=== PATIENT | female | born 1985 | race Caucasian/White ===

== ENCOUNTER 2018-01-17 07:12 | Emergency (ER) | payer OTHER ==
[2018-01-17] MEDS ORDERED: METOPROLOL TAR 50 MG TAB ONE (08:01)
[2018-01-17] MEDS ORDERED: KETOROLAC 30 MG/ML INJ ONE (08:01)
[2018-01-17] MEDS ORDERED: HYDROCODONE/APAP 10/325 TAB ONE (08:53)
--- NOTE | 2018-01-17 09:44 | ER ---
Nurse's Notes [facility] Name: Joslyn Cadena Age: 32 yrs Sex: Female : 1985 Arrival Date: 01/17/2018 Time: 07:15 Bed 20 Private MD: None, None Diagnosis: Insect bite (nonvenomous), right lower leg Presentation: 01/17 07:20 Presenting complaint: Patient states: "I got bitten by a spider this morning". Pt aa5 reports spider bite to right calf. 07:20 Transition of care: patient was not received from another setting of care. Onset of aa5 symptoms was January 17, 2018. Risk Assessment: Do you want to hurt yourself or someone else? Patient reports no desire to harm self or others. Initial Sepsis Screen: Does the patient meet any 2 criteria? No. Patient's initial sepsis screen is negative. Does the patient have a suspected source of infection? No. Patient's initial sepsis screen is negative. Care prior to arrival: None. 07:20 Method Of Arrival: Ambulatory aa5 07:20 Acuity: MIKE 5 aa5 Triage Assessment: 08:07 Bite description: animal information: vaccination(s). hb Historical: - Allergies: 07:22 Naproxen; aa5 07:22 dextromethorphan; aa5 - PMHx: 07:22 Hypertension; Fatty Liver; aa5 - PSHx: 07:22 ; aa5 - Immunization history:: Adult Immunizations unknown. - Social history:: Smoking status: Patient uses tobacco products, smokes one-half pack cigarettes per day. - Ebola Screening: : No symptoms or risks identified at this time. Screenin:05 Abuse screen: Denies threats or abuse. Denies injuries from another. Nutritional hb screening: No deficits noted. Tuberculosis screening: No symptoms or risk factors identified. Fall Risk None identified. Assessment: 08:05 General: Appears in no apparent distress. Behavior is calm, cooperative. Pain: Pain hb currently is 9 out of 10 on a pain scale. Neuro: Level of Consciousness is awake, alert, obeys commands, Oriented to person, place, time, situation. Cardiovascular: Capillary refill < 3 seconds Patient's skin is warm and dry. Respiratory: Airway is patent Trachea midline Respiratory effort is even, unlabored, Respiratory pattern is regular, symmetrical. Derm: Skin is intact, is healthy with good turgor, Skin is pink, warm \\T\\ dry. 08:06 Reassessment: Pt report bit to back of right calf, very small insect bite noted, no hb redness or swelling present. 08:55 Reassessment: Patient appears in no apparent distress at this time. Patient and/or hb family updated on plan of care and expected duration. Pain level reassessed. Patient is alert, oriented x 3, equal unlabored respirations, skin warm/dry/pink. Family at bedside. 09:45 Reassessment: Patient appears in no apparent distress at this time. Patient and/or hb family updated on plan of care and expected duration. Pain level reassessed. Patient is alert, oriented x 3, equal unlabored respirations, skin warm/dry/pink. Patient states feeling better. Patient states symptoms have improved. Vital Signs: 07:24 BP 172 / 110; Pulse 89; Resp 20 S; Temp 97.6(O); Pulse Ox 98% on R/A; Pain 9/10; aa5 08:45 BP 180 / 106; Pulse 80; Resp 15; Pulse Ox 100% on R/A; Pain 8/10; hb 09:45 BP 156 / 86; Pulse 78; Resp 16; Pulse Ox 100% on R/A; Pain 3/10; hb ED Course: 07:15 Patient arrived in ED. sb2 07:15 Eloy Johnson MD is Attending Physician. kdr 07:15 None, None is Private Physician. sb2 07:20 Arm band placed on. aa5 07:29 Triage completed. aa5 07:40 Patient has correct armband on for positive identification. Bed in low position. Call hb light in reach. Side rails up X 1. 07:45 Mallorie Merritt, RN is Primary Nurse. hb 10:15 No provider procedures requiring assistance completed. Patient did not have IV access hb during this emergency room visit. Administered Medications: 08:05 Drug: Lopressor (metoprolol TARTRATE) 50 mg Route: PO; hb 09:00 Follow up: Response: No adverse reaction; Blood pressure is lowered hb 08:05 Drug: TORadol 60 mg Route: IM; Site: right gluteus; hb 09:00 Follow up: Response: No adverse reaction; Pain is decreased hb 08:54 Drug: [place] 10 mg-325 mg 1 tabs Route: PO; hb 09:45 Follow up: Response: No adverse reaction; Pain is decreased hb Outcome: 09:43 Discharge ordered by . kdr 10:15 Discharged to home ambulatory. hb 10:15 Condition: stable 10:15 Discharge instructions given to patient, Instructed on discharge instructions, follow up and referral plans. medication usage, wound care, Demonstrated understanding of instructions, follow-up care, medications, wound care, Prescriptions given X 2. 10:16 Patient left the ED. hb Signatures: Eloy Johnson MD MD [facility] Lee Ann Maza, RN RN aa5 Mallorie Merritt RN RN Consuelo Epstein sb2
--- NOTE | 2018-01-17 09:44 | EDPHYS ---
Physician Documentation [facility] Name: Joslyn Cadena Age: 32 yrs Sex: Female : 1985 Arrival Date: 01/17/2018 Time: 07:15 Bed 20 Private MD: None, None ED Physician Eloy Johnson HPI: 01/17 08:02 This 32 yrs old Female presents to ER via Ambulatory with complaints of kdr Insect Bite. 08:02 The patient was bitten on the lateral aspect of right calf, by an unknown animal. kdr Onset: The symptoms/episode began/occurred suddenly, just prior to arrival, 1.5 hour(s) ago. Secondary to the bite the patient reports pain, swelling. Associated signs and symptoms: Pertinent positives: pain at site, swelling at site, tenderness. Severity of symptoms: At their worst the symptoms were moderate, just prior to arrival, in the emergency department the symptoms. The patient has not experienced similar symptoms in the past. The patient has not recently seen a physician. Historical: - Allergies: 07:22 Naproxen; aa5 07:22 dextromethorphan; aa5 - PMHx: 07:22 Hypertension; Fatty Liver; aa5 - PSHx: 07:22 ; aa5 - Immunization history:: Adult Immunizations unknown. - Social history:: Smoking status: Patient uses tobacco products, smokes one-half pack cigarettes per day. - Ebola Screening: : No symptoms or risks identified at this time. ROS: 08:02 Constitutional: Negative for fever, chills, and weight loss, Eyes: Negative for injury, kdr pain, redness, and discharge, ENT: Negative for injury, pain, and discharge, Neck: Negative for injury, pain, and swelling, Cardiovascular: Negative for chest pain, palpitations, and edema, Respiratory: Negative for shortness of breath, cough, wheezing, and pleuritic chest pain, Abdomen/GI: Negative for abdominal pain, nausea, vomiting, diarrhea, and constipation, Back: Negative for injury and pain, : Negative for injury, bleeding, discharge, and swelling, Skin: Negative for injury, rash, and discoloration, Neuro: Negative for headache, weakness, numbness, tingling, and seizure activity. Psych: Negative for depression, anxiety, suicide ideation, homicidal ideation, and hallucinations, Allergy/Immunology: Negative for hives, rash, and allergies, Endocrine: Negative for neck swelling, polydipsia, polyuria, polyphagia, and marked weight changes, Hematologic/Lymphatic: Negative for swollen nodes, abnormal bleeding, and unusual bruising. 08:02 MS/extremity: Positive for pain, swelling, tenderness, of the lateral aspect of right calf. Exam: 08:02 Constitutional: This is a well developed, well nourished patient who is awake, alert, kdr and in no acute distress. Head/Face: Normocephalic, atraumatic. Eyes: Pupils equal round and reactive to light, extra-ocular motions intact. Lids and lashes normal. Conjunctiva and sclera are non-icteric and not injected. Cornea within normal limits. Periorbital areas with no swelling, redness, or edema. Neck: Trachea midline, no thyromegaly or masses palpated, and no cervical lymphadenopathy. Supple, full range of motion without nuchal rigidity, or vertebral point tenderness. No Meningismus. Chest/axilla: Normal chest wall appearance and motion. Nontender with no deformity. No lesions are appreciated. Cardiovascular: Regular rate and rhythm with a normal S1 and S2. No gallops, murmurs, or rubs. Normal PMI, no JVD. No pulse deficits. Respiratory: Lungs have equal breath sounds bilaterally, clear to auscultation and percussion. No rales, rhonchi or wheezes noted. No increased work of breathing, no retractions or nasal flaring. Abdomen/GI: Soft, non-tender, with normal bowel sounds. No distension or tympany. No guarding or rebound. No evidence of tenderness throughout. Back: No spinal tenderness. No costovertebral tenderness. Full range of motion. MS/ Extremity: Pulses equal, no cyanosis. Neurovascular intact. Full, normal range of motion. Neuro: Awake and alert, GCS 15, oriented to person, place, time, and situation. Cranial nerves II-XII grossly intact. Motor strength 5/5 in all extremities. Sensory grossly intact. Cerebellar exam normal. Normal gait. Psych: Awake, alert, with orientation to person, place and time. Behavior, mood, and affect are within normal limits. 08:02 Skin: Appearance: normal except for affected area, induration, that is mild is noted, injury, bite(s), superficial, puncture(s), that are superficial, of the lateral aspect of right calf. Vital Signs: 07:24 BP 172 / 110; Pulse 89; Resp 20 S; Temp 97.6(O); Pulse Ox 98% on R/A; Pain 9/10; aa5 08:45 BP 180 / 106; Pulse 80; Resp 15; Pulse Ox 100% on R/A; Pain 8/10; hb 09:45 BP 156 / 86; Pulse 78; Resp 16; Pulse Ox 100% on R/A; Pain 3/10; hb MDM: 08:02 Data reviewed: vital signs, nurses notes. Counseling: I had a detailed discussion with kdr the patient and/or guardian regarding: the historical points, exam findings, and any diagnostic results supporting the discharge/admit diagnosis. 09:43 Patient medically screened. kdr Administered Medications: 08:05 Drug: Lopressor (metoprolol TARTRATE) 50 mg Route: PO; hb 09:00 Follow up: Response: No adverse reaction; Blood pressure is lowered hb 08:05 Drug: TORadol 60 mg Route: IM; Site: right gluteus; hb 09:00 Follow up: Response: No adverse reaction; Pain is decreased hb 08:54 Drug: [place] 10 mg-325 mg 1 tabs Route: PO; hb 09:45 Follow up: Response: No adverse reaction; Pain is decreased hb Disposition: 01/17/18 09:43 Discharged to Home. Impression: Insect bite (nonvenomous), right lower leg. - Condition is Stable. - Discharge Instructions: Insect Bite, [id number]. - Prescriptions for Tramadol 50 mg Oral Tablet - take 1 tablet by ORAL route every 8 hours as needed; 12 tablet. Bactrim DS 800- 160 mg Oral Tablet - take 1 tablet by ORAL route every 12 hours for 3 days; 6 tablet. - Medication Reconciliation Form, Thank You Letter, Antibiotic Education, Prescription Opioid Use form. - Follow up: Private Physician; When: 2 - 3 days; Reason: If symptoms return, Further diagnostic work-up, Recheck today's complaints, Continuance of care, Re-evaluation by your physician. - Problem is new. - Symptoms have improved. Signatures: Eloy Johnson MD MD [facility] Lee Ann Maza RN RN aa Mallorie Merritt RN RN hb Corrections: (The following items were deleted from the chart) 10:16 09:43 01/17/2018 09:43 Discharged to Home. Impression: Insect bite (nonvenomous), right hb lower leg. Condition is Stable. Forms are Medication Reconciliation Form, Thank You Letter, Antibiotic Education, Prescription Opioid Use. Follow up: Private Physician; When: 2 - 3 days; Reason: If symptoms return, Further diagnostic work-up, Recheck today's complaints, Continuance of care, Re-evaluation by your physician. Problem is new. Symptoms have improved. kdr
== END 2018-01-17 10:16 | disposition home or self-care (01) ==
LOC: ER 07:12
DX: S80.861A Insect bite (nonvenomous), right lower leg, initial encounter (principal); Z88.8 Allergy status to other drugs, medicaments and biological substances
CPT/HCPCS: 96372; 99283

== ENCOUNTER 2018-06-28 11:38 | Observation (INO) | payer OTHER, SELFPAY ==
[2018-06-28] MEDS ORDERED: ONDANSETRON 4 MG/2 ML VIAL ONE (11:58)
[2018-06-28] MEDS ORDERED: MAGNE/ALUM HYDROXD 30 ML UCUP ONE (11:58)
[2018-06-28] MEDS ORDERED: LIDOCAINE VISCOUS 2% SOLN 15 ML UDC ONE (11:58)
[2018-06-28 12:23] LABS: Absolute Monocytes 0.6 K/uL (0.1-1.3); Absolute Neutrophil 11.7 K/uL (1.8-8.0); Basophils % 0.3 % (0-1.3); Eosinophils % 1.5 % (0-4.4); Hematocrit 37.3 % (36.0-45.0); Lymphocytes % 13.5 % (15.3-44.8); MCH 23.1 pg (27.0-35.0); MCV 73.9 fL (80-100); MPV 8.5 fL (7.6-11.3); Monocytes % 3.9 % (3.3-12.3); RBC Red Blood Cell Count 5.04 M/uL (3.86-4.86)
[2018-06-28 12:37] LABS: ALT/SGPT 21 U/L (12-78); AST/SGOT 13 U/L (15-37); Albumin 3.4 g/dL (3.4-5.0); Alkaline Phosphatase 81 U/L (45-117); BUN Blood Urea Nitrogen 12 mg/dL (7-18); Bicarbonate 27 mmol/L (21-32); Bilirubin Direct < 0.1 mg/dL (0-0.2); Bilirubin Total 0.2 mg/dL (0.2-1.0); Glucose Level 99 mg/dL (74-106); Lipase 85 U/L (73-393); Potassium 4.2 mmol/L (3.5-5.1); Protein, Total 7.3 g/dL (6.4-8.2); Sodium Level 136 mmol/L (136-145)
[2018-06-28] MEDS ORDERED: MORPHINE 4 MG/ML SYR ONE (12:40)
[2018-06-28] MEDS ORDERED: MEPERIDINE HCL 50 MG/ML AMP ONE (12:53)
--- NOTE | 2018-06-28 14:35 | EDPHYS ---
Physician Documentation [facility] Name: Joslyn Cadena Age: 32 yrs Sex: Female : 1985 Arrival Date: 06/28/2018 Time: 11:40 Bed 6 Private MD: ED Physician Jaron Soto HPI: 06/28 12:44 This 32 yrs old Female presents to ER via EMS with complaints of abdominal rn pain. 12:44 The patient presents with abdominal pain in the epigastric area. Onset: The rn symptoms/episode began/occurred yesterday. The symptoms do not radiate. Associated signs and symptoms: Pertinent positives: nausea and vomiting, Pertinent negatives: anorexia, blood in stools, chest pain, constipation, diarrhea, dysuria, fever. The symptoms are described as sharp, stabbing. Modifying factors: The symptoms are alleviated by nothing, the symptoms are aggravated by pressure, touching the area. Severity of pain: At its worst the pain was moderate in the emergency department the pain is unchanged. The patient has experienced similar episodes in the past. Reports has had multiple episodes similar to this in past but usually goes away, has known gallstones, reports today pain has been constant since last night, assoc with nausea/vomiting. Also having diarrhea. . [employer]: 11:42 LMP 06/12/2018 ph Historical: - Allergies: 11:44 dextromethorphan; ph 11:44 Naproxen; ph - PMHx: 11:44 fatty liver; Hypertension; ph - PSHx: 11:44 ; ph - Immunization history:: Adult Immunizations unknown. - Social history:: Smoking status: Patient/guardian denies using tobacco. - Ebola Screening: : No symptoms or risks identified at this time. - Family history:: not pertinent. - Hospitalizations: : No recent hospitalization is reported. ROS: 12:44 Constitutional: Negative for fever, chills, and weight loss, Eyes: Negative for injury, rn pain, redness, and discharge, Neck: Negative for injury, pain, and swelling, Cardiovascular: Negative for chest pain, palpitations, and edema, Respiratory: Negative for shortness of breath, cough, wheezing, and pleuritic chest pain, Abdomen/GI: Negative for constipation MS/Extremity: Negative for injury and deformity, Skin: Negative for injury, rash, and discoloration, Neuro: Negative for headache, weakness, numbness, tingling, and seizure. Exam: 12:44 Constitutional: This is a well developed, well nourished patient who is awake, alert, rn crying Head/Face: Normocephalic, atraumatic. Cardiovascular: Regular, no murmur Respiratory: Lungs have equal breath sounds bilaterally, clear to auscultation. No increased work of breathing, no retractions or nasal flaring. Abdomen/GI: soft, mild RUQ and epigastric and LUQ tenderness, no rebound Skin: Warm, dry, no evidence of cellulitis. MS/ Extremity: Pulses equal, no cyanosis. Neurovascular intact. Full, normal range of motion. Equal circumference. Neuro: Awake and alert, GCS 15, oriented to person, place, time, and situation. Cranial nerves II-XII grossly intact. Motor strength 5/5 in all extremities. Sensory grossly intact. Cerebellar exam normal. Normal gait. Vital Signs: 11:42 BP 230 / 119; Pulse 71; Resp 22; Temp 97.7; Pulse Ox 97% on R/A; Weight 88.9 kg; Height ph 5 ft. 3 in. (160.02 cm); Pain 10/10; 12:52 BP 194 / 123; Pulse 68; Resp 18; Pulse Ox 98% on R/A; ph 13:59 BP 179 / 123; Pulse 85; Resp 18; Pulse Ox 98% on R/A; Pain 6/10; ph 15:12 BP 171 / 109; Pulse 70; Resp 18; Temp 97.9; Pulse Ox 99% on R/A; Pain 5/10; ph 11:42 Body Mass Index 34.72 (88.90 kg, 160.02 cm) ph MDM: 11:40 Patient medically screened. rn 14:27 Differential diagnosis: cholecystitis, Cholelithiasis, gastritis. Data reviewed: vital rn signs, nurses notes, lab test result(s), radiologic studies, ultrasound, and as a result, I will admit patient. Counseling: I had a detailed discussion with the patient and/or guardian regarding: the historical points, exam findings, and any diagnostic results supporting the discharge/admit diagnosis, lab results, radiology results, the need for further work-up and treatment in the hospital. Response to treatment: the patient's symptoms have mildly improved after treatment, and as a result, I will admit patient. Admission orders: after a detailed discussion of the patient's condition and case, the admit orders are written by me. ED course: Pt with persistent pain, requiring multiple pain medication, still having pain, + cholelithiasis without fluid, + elevated WBC.. 06/28 11:41 Order name: Basic Metabolic Panel; Complete Time: 12:40 rn 06/28 11:41 Order name: CBC with Diff; Complete Time: 12:30 rn 06/28 11:41 Order name: Hepatic Function; Complete Time: 12:40 rn 06/28 11:41 Order name: Lipase; Complete Time: 12:40 rn 06/28 14:50 Order name: Urine Dipstick--Ancillary (enter results) 06/28 14:50 Order name: Urine --Ancillary (enter results) 06/28 11:41 Order name: IV Saline Lock; Complete Time: 11:46 rn 06/28 11:41 Order name: Labs collected and sent; Complete Time: 12:37 rn 06/28 11:41 Order name: US Abdomen Limited; Complete Time: 14:37 rn 06/28 14:35 Order name: Urine Dipstick-Ancillary (obtain specimen); Complete Time: 14:48 rn 06/28 14:35 Order name: Urine Test (obtain specimen); Complete Time: 14:48 rn Administered Medications: 11:54 Drug: GI Cocktail without - (Maalox Suspension 30 ml, Lidocaine Liquid 2 % 15 ph ml) Route: PO; 12:25 Follow up: Response: No adverse reaction; Pain is unchanged, physician notified ph 11:54 Drug: Zofran 4 mg Route: IVP; Site: left antecubital; ph 13:44 Follow up: Response: No adverse reaction; Nausea is decreased ph 12:37 Drug: morphine 4 mg Route: IVP; Site: left antecubital; ph 12:45 Follow up: Response: No adverse reaction; Pain is unchanged, physician notified ph 12:50 Drug: Demerol 50 mg Route: IVP; Site: left antecubital; ph 13:45 Follow up: Response: No adverse reaction; Pain is decreased ph 15:11 Drug: Zosyn 3.375 grams Route: IVPB; Infused Over: 60 mins; Site: left antecubital; ph 16:00 Follow up: Response: No adverse reaction; IV Status: Infusion continued upon admission ph Disposition: 06/28/18 14:34 Hospitalization ordered by Tanmay Delgadillo for Observation. Preliminary diagnosis is Cholelithiasis. - Bed requested for Telemetry/MedSurg (observation). - Status is Observation. ph - Condition is Stable. - Problem is new. - Symptoms have improved. UTI on Admission? No Signatures: Dispatcher [employer] EDMS Jaron Soto MD MD rn Hall, Patricia, RN RN Yary Brunson Corrections: (The following items were deleted from the chart) 15:02 14:34 Hospitalization Ordered by Tanmay Delgadillo MD for Observation. Preliminary diagnosis eb is Cholelithiasis. Bed requested for Telemetry/MedSurg (observation). Status is Observation. Condition is Stable. Problem is new. Symptoms have improved. UTI on Admission? No. rn 16:01 15:02 06/28/2018 14:34 Hospitalization Ordered by Tanmay Delgadillo MD for Observation. ph Preliminary diagnosis is Cholelithiasis. Bed requested for Telemetry/MedSurg (observation). Status is Observation. Condition is Stable. Problem is new. Symptoms have improved. UTI on Admission? No. eb
--- NOTE | 2018-06-28 14:35 | ER ---
Nurse's Notes [facility] Name: Joslyn Cadena Age: 32 yrs Sex: Female : 1985 Arrival Date: 06/28/2018 Time: 11:40 Bed 6 Private MD: Diagnosis: Cholelithiasis Presentation: 06/28 11:40 Presenting complaint: EMS states: Epigastric pain , N/V/D x 3 days, reports hx of ph gallstones, hypertensive w/ systolic in 190s, pt reports hx of HTN but states that she can not afford meds at this time. Transition of care: patient was not received from another setting of care. Onset of symptoms was June 28, 2018. Risk Assessment: Do you want to hurt yourself or someone else? Patient reports no desire to harm self or others. Initial Sepsis Screen: Does the patient meet any 2 criteria? No. Patient's initial sepsis screen is negative. Care prior to arrival: IV initiated. 20 GA, in the left antecubital area, Glucose check: 130. 11:40 Method Of Arrival: EMS: [facility] ph 11:40 Acuity: MIKE 2 ph 11:46 Initial Sepsis Screen: Does the patient have a suspected source of infection? No. ph Patient's initial sepsis screen is negative. 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 - Social history:: Smoking status: Patient/guardian denies using tobacco. - Ebola Screening: : No symptoms or risks identified at this time. - Family history:: not pertinent. - Hospitalizations: : No recent hospitalization is reported. Screenin:45 Abuse screen: Denies threats or abuse. Denies injuries from another. Nutritional ph screening: No deficits noted. Tuberculosis screening: No symptoms or risk factors identified. Fall Risk None identified. Assessment: 11:47 General: Appears in no apparent distress. uncomfortable, obese, Behavior is ph cooperative, anxious, Denies fever. Pain: Complains of pain in epigastric area Pain currently is 10 out of 10 on a pain scale. Quality of pain is described as sharp, stabbing. Neuro: Level of Consciousness is awake, alert, obeys commands, Oriented to person, place, time, situation. Cardiovascular: Capillary refill < 3 seconds in bilateral fingers Patient's skin is warm and dry. Respiratory: Airway is patent Respiratory effort is even, unlabored, Respiratory pattern is regular, symmetrical. GI: Abdomen is obese, Bowel sounds present X 4 quads. Abd is soft X 4 quads Abdomen is tender to palpation in epigastric area, right upper quadrant and left upper quadrant. Derm: Skin is intact, is healthy with good turgor, Skin is pink, warm \T\ dry. Musculoskeletal: Circulation, motion, and sensation intact. Range of motion: intact in all extremities. 11:55 Reassessment: Pt medicated prior to being taken to US via wheelchair. ph 12:20 Reassessment: Patient appears in no apparent distress at this time. Patient is alert, ph oriented x 3, equal unlabored respirations, skin warm/dry/pink. Pt returned from CT, c/o pain 10/10, ERP notified, see MAR. 12:45 Reassessment: Patient appears in no apparent distress at this time. Patient and/or ph family updated on plan of care and expected duration. Pain level reassessed. Patient is alert, oriented x 3, equal unlabored respirations, skin warm/dry/pink. Pt continues to c/o pain 10/10 after IV morphine, ERP notified, see MAR. 13:41 Reassessment: Patient appears in no apparent distress at this time. Patient and/or ph family updated on plan of care and expected duration. Pain level reassessed. Pt resting quietly at this time, reports that pain has decreased to 6/10, denies nausea. 13:57 Reassessment: Patient appears in no apparent distress at this time. Patient and/or ph family updated on plan of care and expected duration. Pain level reassessed. Patient is alert, oriented x 3, equal unlabored respirations, skin warm/dry/pink. ERP at bedside to speak w/ pt about being admitted to remove gallbladder. 15:27 Reassessment: Attempted to call report, receiving nurse unavailable. ph 15:38 Reassessment: Report called to QUAN Bell. ph 16:00 Reassessment: PT taken to second floor via stretcher. ph Vital Signs: 11:42 BP 230 / 119; Pulse 71; Resp 22; Temp 97.7; Pulse Ox 97% on R/A; Weight 88.9 kg; Height ph 5 ft. 3 in. (160.02 cm); Pain 10/10; 12:52 BP 194 / 123; Pulse 68; Resp 18; Pulse Ox 98% on R/A; ph 13:59 BP 179 / 123; Pulse 85; Resp 18; Pulse Ox 98% on R/A; Pain 6/10; ph 15:12 BP 171 / 109; Pulse 70; Resp 18; Temp 97.9; Pulse Ox 99% on R/A; Pain 5/10; ph 11:42 Body Mass Index 34.72 (88.90 kg, 160.02 cm) ph ED Course: 11:40 Patient arrived in ED. rn 11:40 Jaron Soto MD is Attending Physician. rn 11:40 Daniela Christina RN is Primary Nurse. ph 11:42 Triage completed. ph 11:45 Arm band placed on. ph 11:46 Patient has correct armband on for positive identification. Placed in gown. Bed in low ph position. Call light in reach. Side rails up X 1. Pulse ox on. NIBP on. Warm blanket given. 11:49 Maintain EMS IV. Dressing intact. Site clean \T\ dry. Gauge \T\ site: 20 LAC. ph 12:14 US Abdomen Limited In Process Unspecified. EDMS 14:34 Tanmay Delgadillo MD is Hospitalizing Provider. rn Administered Medications: 11:54 Drug: GI Cocktail without - (Maalox Suspension 30 ml, Lidocaine Liquid 2 % 15 ph ml) Route: PO; 12:25 Follow up: Response: No adverse reaction; Pain is unchanged, physician notified ph 11:54 Drug: Zofran 4 mg Route: IVP; Site: left antecubital; ph 13:44 Follow up: Response: No adverse reaction; Nausea is decreased ph 12:37 Drug: morphine 4 mg Route: IVP; Site: left antecubital; ph 12:45 Follow up: Response: No adverse reaction; Pain is unchanged, physician notified ph 12:50 Drug: Demerol 50 mg Route: IVP; Site: left antecubital; ph 13:45 Follow up: Response: No adverse reaction; Pain is decreased ph 15:11 Drug: Zosyn 3.375 grams Route: IVPB; Infused Over: 60 mins; Site: left antecubital; ph 16:00 Follow up: Response: No adverse reaction; IV Status: Infusion continued upon admission ph Outcome: 14:34 Decision to Hospitalize by Provider. rn 16:01 Patient left the ED. ph Signatures: Dispatcher [employer] EDJaron Morgan MD MD rn Hall, Patricia, RN RN ph
--- NOTE | 2018-06-28 14:36 | RAD REPORT ---
EXAM DESCRIPTION: US - Abdomen Exam Limited - 06/28/2018 12:13 pm CLINICAL HISTORY: Abdominal pain. COMPARISON: 2009 FINDINGS: The gallbladder wall is not thickened. A small gallstone is present The biliary tree is normal caliber. IMPRESSION: Cholelithiasis without evidence of cholecystitis
[2018-06-28 15:05] LABS: Urine Blood TRACE (NEG); Urine Glucose NEGATIVE (NEG); Urine Protein NEGATIVE (NEG)
[2018-06-28] MEDS ORDERED: PIPER/TAZO/NS 3.375gm 3.375 GM/100 ML BAG ONE (15:11)
[2018-06-28 16:40] VITALS: BMI 34.2
[2018-06-28] MEDS ORDERED: ACETAMINOPHEN 500 MG TAB PO PRN (17:49)
[2018-06-28] MEDS ORDERED: ONDANSETRON 4 MG/2 ML VIAL IV PRN (17:49)
[2018-06-28] MEDS ORDERED: INFLUENZA VACCINE (for 3y+) 0.5 ML DOSE IMVAC ONE (18:00)
[2018-06-28] MEDS ORDERED: PIPER/TAZO/NS 3.375gm 3.375 GM/100 ML BAG IVPB SCH (18:00)
[2018-06-28] MEDS: MORPHINE 4 MG/ML SYR IV PRN (18:41)
[2018-06-28] MEDS: D5 0.45 NS 1,000 ML IV SCH (18:44)
[2018-06-28 19:31] LABS: Urine Appearance CLEAR; Urine Bilirubin NEGATIVE (NEG); Urine Blood NEGATIVE (NEG); Urine Color YELLOW; Urine Glucose NEGATIVE (NEG); Urine Protein NEGATIVE (NEG); Urine Specific Gravity 1.015 (1.005-1.030); Urine Urobilinogen 0.2 mg/dL (0.2-1.0)
[2018-06-28 19:35] LABS: Urine Microscopic Reflex NO UMIC
[2018-06-29] MEDS: MORPHINE 4 MG/ML SYR IV PRN ×3 (00:31→15:21)
[2018-06-29] MEDS: PIPER/TAZO/NS 3.375gm 3.375 GM/100 ML BAG IVPB SCH ×2 (00:33→08:58)
[2018-06-29] MEDS: D5 0.45 NS 1,000 ML IV SCH ×2 (00:47→08:58)
[2018-06-29 06:29] LABS: Absolute Lymphocytes (CBC) 3.2 K/uL (0.7-4.9); Absolute Monocytes 0.8 K/uL (0.1-1.3); Absolute Neutrophil 9.3 K/uL (1.8-8.0); Basophils % 0.4 % (0-1.3); Eosinophils % 3.6 % (0-4.4); Lymphocytes % 23.4 % (15.3-44.8); MCH 23.3 pg (27.0-35.0); MCV 73.2 fL (80-100); MPV 9.6 fL (7.6-11.3); Monocytes % 5.5 % (3.3-12.3); RBC Red Blood Cell Count 5.47 M/uL (3.86-4.86)
[2018-06-29 06:33] LABS: ALT/SGPT 19 U/L (12-78); AST/SGOT 17 U/L (15-37); Albumin 2.8 g/dL (3.4-5.0); Alkaline Phosphatase 69 U/L (45-117); BUN Blood Urea Nitrogen 8 mg/dL (7-18); Bicarbonate 24 mmol/L (21-32); Bilirubin Direct < 0.1 mg/dL (0-0.2); Bilirubin Total 0.2 mg/dL (0.2-1.0); Glucose Level 93 mg/dL (74-106); Lipase 94 U/L (73-393); Protein, Total 6.1 g/dL (6.4-8.2); Sodium Level 138 mmol/L (136-145)
[2018-06-29] MEDS ORDERED: PROPOFOL 200 MG/20 ML VIAL IV ONE (11:05)
[2018-06-29] MEDS ORDERED: FENTANYL CITR 100 MCG/2 ML ONE ×2 (11:05→11:54)
[2018-06-29] MEDS ORDERED: ROCURONIUM 50 MG/5 ML VIAL IV ONE (11:05)
[2018-06-29] MEDS ORDERED: Ringers Lactate 1,000 ML IV ONE (11:16)
[2018-06-29] MEDS ORDERED: BUPIVACA 0.5%/EPI 0.0005%/PF 30 ML VIAL ONE (11:18)
[2018-06-29] MEDS ORDERED: DEXAMETHASONE 10 MG/ML VIAL ONE (11:43)
[2018-06-29] MEDS ORDERED: KETOROLAC 30 MG/ML INJ ONE (11:43)
[2018-06-29] MEDS ORDERED: ONDANSETRON HCL 40 MG/20 ML VIAL ONE (11:43)
[2018-06-29] MEDS ORDERED: NEOSTIGMINE 1 MG/ML -5 ML SYRINGE ONE (12:14)
[2018-06-29] MEDS ORDERED: GLYCOPYRROLATE 0.2 MG/ML SYR ONE (12:14)
[2018-06-29] MEDS ORDERED: LABETALOL 20 MG/4ML SYRINGE IV ONE (12:20)
--- NOTE | 2018-06-29 12:23 | P.OP ---
Preoperative diagnosis: Acute Calculous Cholecystitis Postoperative diagnosis: Acute Calculous Cholecystitis Primary procedure: Laparoscopic Cholecystectomy Anesthesia: GETA + Local Estimated blood loss: < 5 cc Specimen: Gallbladder Findings: acute inflammation, steatosis Complications: None Transferred to: Recovery Room Condition: Good
[2018-06-29] MEDS ORDERED: LABETALOL HCL 100 MG/20 ML ONE (12:49)
[2018-06-29] MEDS: MEPERIDINE HCL 50 MG/ML AMP ONE ×4 (12:50→13:08)
--- NOTE | 2018-06-29 13:10 | OP ---
Date of Procedure: 06/29/2018 Surgeon: Tanmay Delgadillo MD, Preoperative Diagnosis: Acute calculous cholecystitis. Postoperative Diagnosis: Acute calculous cholecystitis. Procedure Performed: Laparoscopic cholecystectomy. Anesthesia: General endotracheal plus local. Estimated Blood Loss: Less than 5 cc. Specimens: Gallbladder. Findings: Acute inflammation and steatosis. Complication: None. Disposition: Transferred to recovery room in good condition. Procedure In Detail: After informed consent was obtained, the patient was brought to the operating r oom, prepped and draped in the usual sterile fashion. After adequate anesthesia was achieved, the ar ea of the supraumbilical position was anesthetized with 0.5% Marcaine and sharply incised. A 5 mm 0 degree optical trocar was introduced in the abdomen without evidence of complication. Insufflation w as obtained at this time to 15 mmHg. The area was inspected for injury of vital structures. No inju ry of vital structures. At this time, the abdomen was inspected. A fatty steatotic liver was apprec iated and there was large amount of intraabdominal adiposity to the anterior and lower abdominal wall consistent with a previous history of section. The uterus was also adhesed to the anterior abdominal wall. Attention was then turned back to the epigastrium. The area of the epigastrium was similarly anesthetized and sharply incised. A 5-mm trocar was then introduced in the abdomen withou t evidence of complication. The umbilical trocar was then up-sized to a 12 mm under direct visualiza tion without evidence of complication. Additional trocar was chosen in the right upper quadrant. Th is was similarly anesthetized and sharply incised, and a 5-mm trocar was introduced in the abdomen wi thout evidence of complication. The patient was positioned head up right-side up position and ratche t grasper used to grasp the gallbladder, removed peritoneal attachments from the anterior surface, wh ich were thick and fibrous at this time. Electrocautery was used to dissect some of these off as wel l. The dissection continued down towards the Delroy's pouch. The gallbladder was being placed tow ards the patient's right shoulder and the lateral traction was performed to visualize two structures enter the gallbladder. These were both skeletonized and identified as the cystic duct and cystic art ann with liver visualized posteriorly. The area was completely skeletonized showing only two structu res enter the gallbladder. The critical view of safety was obtained at this time and the Endo clip d evice was then brought into the abdomen and used to doubly ligate the proximal side of both the cysti c duct and cystic artery and singly on the distal side. The Endo Heaven were then used to ligate the se two structures. Good hemostasis was achieved at this time. There was no spillage of bile at this time. Additionally, the electrocautery was then used to take the gallbladder off the hepatic fossa without evidence of complication. No additional hemostatic maneuvers were required. The gallbladder was then placed in EndoCatch bag removed through the umbilical trocar. Re-insufflation at times was achieved at this time. The area was copiously irrigated multiple times until completely clear and s uctioned out. The patient was positioned in the neutral position, irrigated one last time, suction o nce more. The umbilical trocar was then removed. The umbilical trocar site was then closed using a Alon-Hector suture passer with 0 Vicryl in interrupted fashion with good approximation of tissues . The abdomen was completely desufflated under direct visualization without evidence of complication . All trocars were then removed. All skin incisions were copiously irrigated and closed with a 4-0 Monocryl in a running fashion. Dermabond placed over top. The patient tolerated the procedure well without evidence of complication and transferred to the PACU in good condition. All counts were pam ect at the end of the case. SMITA/BETSY Voice ID: [id number] Report ID: [id number]
[2018-06-29 13:17] VITALS: O2SAT 98
[2018-06-29 15:20] VITALS: BP 136/79; TEMP 97.6
--- NOTE | 2018-06-29 19:16 | HP ---
Date of Admission: 06/28/2018 Brief History Of Present Illness: The patient is a 32-year-old female, who presents with a pproximately 3-day history of epigastric and right upper quadrant abdominal pain beginning after eati ng some sausage. She states that the pain was constant, sharp, stabbing in the right upper quadrant epigastric region with some radiation to the back associated with nausea, vomiting, and diarrhea. Dheeraj rodriguez has had multiple episodes before in the past beginning in October. However, this is the worst episod e that she has had by her description. There were no other aggravating or alleviating factors. She has been n.p.o. due to the pain and came to the emergency room with the above-stated complaints. Past Medical History: Significant for hypertension, early glaucoma, anxiety, depression, bipolar, PT SD, fatty steatosis of the liver. Past Surgical History: She has had 2 C-sections. Allergies: DEXTROMETHORPHAN, NAPROXEN. Home Medications: None. Social History: She admits to smoking a pack a day of cigarettes currently. She used methamphetamin es as of 1 week ago. She denies any other recreational drug use or alcohol use. Family History: Reviewed, noncontributory. Review of Systems: A 10-point review of systems other than HPI, denies. Physical Examination: Vital Signs: At the time examination, her BMI is 34.2. Her blood pressure 165/77, pulse 76, respira tory rate 18, temperature 97.2. General: She is awake, alert, and oriented. Psychiatric: She is appropriate and conversive. HEENT: She is normocephalic. Sclerae anicteric. Mucous membranes are moist. Oropharynx is clear. She has poor dentition. Neck: Supple. No JVD. Chest: Normal expansion and excursion. Cardiovascular: Regular rate and rhythm. Pulmonary: Clear to auscultation bilaterally. Abdomen: Soft with mild right upper quadrant and epigastric tenderness to palpation. No rebound. N o guarding. Negative Burgos sign. Abdomen: Obese generally. She has well-healed scar in the appropriate anatomic location. Extremities: No clubbing, cyanosis, edema. Skin: Warm and dry. Laboratory Data: Reveals a white count of 13.8, hemoglobin 12.7, hematocrit of 40.0, platelet count is 252. Her sodium 134, potassium 4.0, chloride 108, carbon dioxide 24, BUN is 8, creatinine 0.6, gl ucose is 93, total bilirubin 0.2, AST is 17, ALT 19, alkaline phosphatase is 69, lipase is 94. UA wa s essentially negative with a negative urine test. She had an ultrasound performed as well which was officially read as cholelithiasis without evidence of cholecystitis. Assessment And Plan: This is a 32-year-old female who comes in with signs and symptoms of acute symp tomatic cholelithiasis. 1.IV fluid hydration. 2.Antibiotic coverage with Zosyn 3.375 IV q.6h. 3.I have explained the risks, benefits, and alternatives of laparoscopic, possible open cholecystect eron including but not limited to bleeding, infection, damage to surrounding tissues, injury to bile d ucts and intestines, need for further operation or procedures. The patient agrees to proceed as valentina cated. PIA Voice ID: [id number]
== END 2018-06-29 16:13 | disposition home or self-care (01) ==
LOC: ER 11:38 → ERHOLD 14:38 → 2ND 15:47
PROVIDERS: ADMIT Surgery; ATTEND Surgery
PROC: 0FT44ZZ Resection of Gallbladder, Percutaneous Endoscopic Approach (ICD-10-PCS; principal; 2018-06-29 11:00)
DX: K80.00 Calculus of gallbladder with acute cholecystitis without obstruction (principal); I10 Essential (primary) hypertension; F41.8 Other specified anxiety disorders; F31.9 Bipolar disorder, unspecified; F17.210 Nicotine dependence, cigarettes, uncomplicated
CPT/HCPCS: 36415; 76705; 80048; 80076; 81003; 81025; 83690; 85025; 88304; 96365; 96375; 99284; G0378; J1100; J2175; J2405; J2543; J2704; J2710; J3010

== ENCOUNTER 2019-08-17 15:20 | Emergency (ER) | payer SELFPAY ==
[2019-08-17 15:46] LABS: Absolute Lymphocytes (CBC) 2.2 K/uL (0.7-4.9); Basophils % 0.6 % (0-1.3); Lymphocytes % 21.3 % (15.3-44.8); MPV 9.1 fL (7.6-11.3)
[2019-08-17] MEDS ORDERED: NICOTINE 21 MG/PAT TD ONE (15:57)
[2019-08-17 16:05] LABS: ALT/SGPT 23 U/L (12-78); AST/SGOT 14 U/L (15-37); Albumin 3.8 g/dL (3.4-5.0); Alkaline Phosphatase 68 U/L (45-117); BUN Blood Urea Nitrogen 16 mg/dL (7-18); Bicarbonate 27 mmol/L (21-32); Bilirubin Direct < 0.1 mg/dL (0-0.2); Bilirubin Total 0.2 mg/dL (0.2-1.0); Glucose Level 99 mg/dL (74-106); Potassium 3.4 mmol/L (3.5-5.1); Protein, Total 7.2 g/dL (6.4-8.2); Sodium Level 140 mmol/L (136-145); Troponin (Emerg Dept Use Only) < 0.02 ng/mL (0.0-0.045)
--- NOTE | 2019-08-17 17:18 | RAD REPORT ---
EXAM DESCRIPTION: RAD - Chest Single View - 08/17/2019 4:04 pm CLINICAL HISTORY: CHEST PAIN Chest pain. COMPARISON: No comparisons FINDINGS: Portable technique limits examination quality. The lungs are grossly clear. The heart is normal in size. No displaced fractures. IMPRESSION: No acute intrathoracic process suspected.
[2019-08-17 17:22] LABS: Urine Blood TRACE (NEG); Urine Glucose NEGATIVE (NEG); Urine Protein NEGATIVE (NEG); Urine Specific Gravity 1.015 (1.005-1.030)
[2019-08-17] MEDS ORDERED: CEFTRIAXONE/SWI 1gm 1 GM/10 ML SYR ONE (17:22)
[2019-08-17 17:42] LABS: Urine Bacteria LOADED /HPF (<20); Urine Culture Reflex Order NOT NEEDED; Urine RBC <5 /HPF (NONE SEEN)
[2019-08-17 17:53] LABS: Barbiturates NEGATIVE (NEGATIVE); Benzodiazepines NEGATIVE (NEGATIVE); Cocaine NEGATIVE (NEGATIVE); METHAMPHETAM POSITIVE (NEGATIVE); Methadone NEGATIVE (NEGATIVE); Opiates NEGATIVE (NEGATIVE); Phencyclidine NEGATIVE (NEGATIVE); THC Cannibis NEGATIVE (NEGATIVE)
--- NOTE | 2019-08-17 18:04 | EDPHYS ---
Physician Documentation [facility] Name: Joslyn Cadena Age: 33 yrs Sex: Female : 1985 Arrival Date: 08/17/2019 Time: 15:21 Bed 7 Private MD: ED Physician Eloy Johnson HPI: 08/17 16:06 This 33 yrs old Female presents to ER via EMS with complaints of High Blood pm1 Pressure. 16:06 The patient has elevated blood pressure and discovered this EMS arrival to home as pm1 patient was being arrested. Onset: The symptoms/episode began/occurred just prior to arrival. Modifying factors: The symptoms are aggravated by anger from being arrested, The symptoms are alleviated by Patient given labetalol 20 mg IVP in rout by EMS. Associated signs and symptoms: Pertinent positives: chest pain, Pertinent negatives: headache. Severity of symptoms: in the emergency department the blood pressure is improved. The patient has not recently seen a physician, and does not have an established primary care provider. Patient used methamphetamine this AM. Historical: - Allergies: 15:23 dextromethorphan; hb 15:23 Naproxen; hb - Home Meds: 15:23 None [Active]; hb - PMHx: 15:23 fatty liver; Hypertension; hb - PSHx: 15:23 ; hb - Immunization history:: Adult Immunizations up to date. - Social history:: Smoking status: Patient uses tobacco products, smokes one pack cigarettes per day. - Ebola Screening: : No symptoms or risks identified at this time. ROS: 16:06 Constitutional: Negative for fever, chills, and weight loss, Eyes: Negative for injury, pm1 pain, redness, and discharge, ENT: Negative for injury, pain, and discharge, Neck: Negative for injury, pain, and swelling. 16:06 Respiratory: Negative for shortness of breath, cough, wheezing, and pleuritic chest pain, Abdomen/GI: Negative for abdominal pain, nausea, vomiting, diarrhea, and constipation, Back: Negative for injury and pain, : Negative for injury, bleeding, discharge, and swelling, MS/Extremity: Negative for injury and deformity, Skin: Negative for injury, rash, and discoloration, Neuro: Negative for headache, weakness, numbness, tingling, and seizure. 16:06 Cardiovascular: Positive for chest pain, Negative for edema. Exam: 16:06 Constitutional: This is a well developed, well nourished patient who is awake, alert, pm1 and in no acute distress. Head/Face: Normocephalic, atraumatic. Eyes: Pupils equal round and reactive to light, extra-ocular motions intact. Lids and lashes normal. Conjunctiva and sclera are non-icteric and not injected. Cornea within normal limits. Periorbital areas with no swelling, redness, or edema. ENT: Nares patent. No nasal discharge, no septal abnormalities noted. Tympanic membranes are normal and external auditory canals are clear. Oropharynx with no redness, swelling, or masses, exudates, or evidence of obstruction, uvula midline. Mucous membranes moist. Neck: Trachea midline, no thyromegaly or masses palpated, and no cervical lymphadenopathy. Supple, full range of motion without nuchal rigidity, or vertebral point tenderness. No Meningismus. Chest/axilla: Normal chest wall appearance and motion. Nontender with no deformity. No lesions are appreciated. Cardiovascular: Regular rate and rhythm with a normal S1 and S2. No gallops, murmurs, or rubs. No pulse deficits. Respiratory: Lungs have equal breath sounds bilaterally, clear to auscultation and percussion. No rales, rhonchi or wheezes noted. No increased work of breathing, no retractions or nasal flaring. Abdomen/GI: Soft, non-tender, with normal bowel sounds. No distension or tympany. No guarding or rebound. No evidence of tenderness throughout. Back: No spinal tenderness. No costovertebral tenderness. Full range of motion. Skin: Warm, dry with normal turgor. Normal color with no rashes, no lesions, and no evidence of cellulitis. MS/ Extremity: Pulses equal, no cyanosis. Neurovascular intact. Full, normal range of motion. 16:06 Neuro: Orientation: is normal, Motor: is normal, moves all fours. Vital Signs: 15:21 BP 169 / 86; Pulse 88; Resp 18; Temp 98.2(O); Pulse Ox 99% ; lt1 16:40 BP 162 / 91; Pulse 89; Resp 18; Pulse Ox 99% on R/A; ph 18:21 BP 171 / 92; Pulse 87; Resp 18; Temp 98.0; Pulse Ox 99% on R/A; ph MDM: 15:25 Patient medically screened. jr8 17:55 Data reviewed: vital signs. Data interpreted: Pulse oximetry: on room air is 99 %. pm1 Interpretation: normal. 17:56 Counseling: I had a detailed discussion with the patient and/or guardian regarding: the pm1 historical points, exam findings, and any diagnostic results supporting the discharge/admit diagnosis, lab results, radiology results, the need for outpatient follow up, to return to the emergency department if symptoms worsen or persist or if there are any questions or concerns that arise at home, Drug use cessation. 08/17 15:29 Order name: Basic Metabolic Panel pm1 08/17 15:29 Order name: CBC with Diff; Complete Time: 15:51 pm1 08/17 15:29 Order name: LFT's; Complete Time: 16:12 pm1 08/17 15:29 Order name: Troponin (emerg Dept Use Only); Complete Time: 16:12 pm1 08/17 15:29 Order name: UDS; Complete Time: 17:56 pm1 08/17 15:30 Order name: Basic Metabolic Panel; Complete Time: 16:12 EDMS 08/17 15:29 Order name: XRAY Chest (1 view); Complete Time: 17:27 pm1 08/17 15:29 Order name: EKG; Complete Time: 15:30 pm1 08/17 15:29 Order name: Cardiac monitoring; Complete Time: 15:40 pm1 08/17 17:13 Order name: Urine Microscopic Only; Complete Time: 17:50 iw 08/17 17:13 Order name: Urine Culture iw 08/17 17:15 Order name: Urine Dipstick--Ancillary (enter results); Complete Time: 17:22 bd 08/17 17:15 Order name: Urine --Ancillary (enter results); Complete Time: 17:22 bd 08/17 15:29 Order name: EKG - Nurse/Tech; Complete Time: 15:50 pm1 08/17 15:29 Order name: IV Saline Lock; Complete Time: 15:40 pm1 08/17 15:29 Order name: Labs collected and sent; Complete Time: 15:40 pm1 08/17 15:29 Order name: O2 Per Protocol; Complete Time: 15:40 pm1 08/17 15:29 Order name: O2 Sat Monitoring; Complete Time: 15:40 pm1 08/17 15:29 Order name: Urine Dipstick-Ancillary (obtain specimen); Complete Time: 17:23 pm1 08/17 15:29 Order name: Urine Test (obtain specimen); Complete Time: 17:23 pm1 Administered Medications: 18:00 Drug: Rocephin 1 grams Route: IV; Rate: calculated rate; Site: left antecubital; ph 18:21 Follow up: Response: No adverse reaction; IV Status: Completed infusion ph Disposition: 08/18 07:36 Co-signature as Attending Physician, Eloy Johnson MD I agree with the assessment and kdr plan of care. Disposition: 08/17/19 18:03 Discharged to Home. Impression: Essential (primary) hypertension, Other stimulant abuse - methamphetamine abuse, Chest pain, unspecified, state, Urinary tract infection, site not specified. - Condition is Stable. - Discharge Instructions: Finding Treatment for Addiction, Nonspecific Chest Pain, Hypertension, How to Take Your Blood Pressure, [id number], and Urinary Tract Infection, DASH Eating Plan, Managing Your Hypertension. - Prescriptions for Macrobid 100 mg Oral Capsule - take 1 capsule by ORAL route every 12 hours for 10 days; 20 capsule. - Medication Reconciliation Form, Thank You Letter, Antibiotic Education, Prescription Opioid Use form. - Follow up: Emergency Department; When: As needed; Reason: Worsening of condition. Follow up: Private Physician; When: 2 - 3 days; Reason: Recheck today's complaints, Continuance of care, Re-evaluation by your physician. - Problem is new. - Symptoms have improved. Signatures: Dispatcher [employer] EDMS Eloy Johnson MD MD kdr Roszak, Josh, PA PA jr8 Daniela Christina RN RN ph Scooter Goodman, [employer] pm1 Mallorie Merritt RN RN Corrections: (The following items were deleted from the chart) 08/17 17:57 17:56 Counseling: I had a detailed discussion with the patient and/or guardian pm1 regarding: the historical points, exam findings, and any diagnostic results supporting the discharge/admit diagnosis, lab results, radiology results, the need for outpatient follow up, to return to the emergency department if symptoms worsen or persist or if there are any questions or concerns that arise at home, Drug use cessation, pm1 18:23 18:03 08/17/2019 18:03 Discharged to Home. Impression: Essential (primary) ph hypertension; Other stimulant abuse - methamphetamine abuse; Chest pain, unspecified; state; Urinary tract infection, site not specified. Condition is Stable. Forms are Medication Reconciliation Form, Thank You Letter, Antibiotic Education, Prescription Opioid Use. Follow up: Emergency Department; When: As needed; Reason: Worsening of condition. Follow up: Private Physician; When: 2 - 3 days; Reason: Recheck today's complaints, Continuance of care, Re-evaluation by your physician. Problem is new. Symptoms have improved. pm1
--- NOTE | 2019-08-17 18:04 | ER ---
Nurse's Notes [facility] Name: Joslyn Cadena Age: 33 yrs Sex: Female : 1985 Arrival Date: 08/17/2019 Time: 15:21 Bed 7 Private MD: Diagnosis: Essential (primary) hypertension;Other stimulant abuse-methamphetamine abuse;Chest pain, unspecified; state;Urinary tract infection, site not specified Presentation: 08/17 15:22 Presenting complaint: EMS states: PT was placed under arrest and c/o "seeing stars" so [place] PD called EMS, initial BP 200/118, 20G to LAC, 10mg labetalol administered IVP, last BP 138/82, pt HTN but does not take meds due to cost. Transition of care: patient was not received from another setting of care. Onset of symptoms was August 17, 2019. Risk Assessment: Do you want to hurt yourself or someone else? Patient reports no desire to harm self or others. Initial Sepsis Screen: Does the patient meet any 2 criteria? No. Patient's initial sepsis screen is negative. Does the patient have a suspected source of infection? No. Patient's initial sepsis screen is negative. Care prior to arrival: Medication(s) given: labetalol 10mg IVP IV initiated. 20 GA, in the left antecubital area. 15:22 Method Of Arrival: EMS: [facility] 15:22 Acuity: MIKE 3 15:23 Risk Assessment: Do you want to hurt yourself or someone else? Patient reports no hb desire to harm self or others. Initial Sepsis Screen: Does the patient meet any 2 criteria? No. Patient's initial sepsis screen is negative. Does the patient have a suspected source of infection? No. Patient's initial sepsis screen is negative. Triage Assessment: 15:26 General: Appears in no apparent distress. comfortable, unkempt, Behavior is ph cooperative, appropriate for age. Pain: Complains of pain in chest. Neuro: Level of Consciousness is awake, alert, obeys commands, Oriented to person, place, time, situation, Reports blurred vision dizziness. Cardiovascular: Capillary refill < 3 seconds in bilateral fingers Patient's skin is warm and dry. Cardiovascular: Reports chest pain, lightheadedness. Respiratory: Airway is patent Respiratory effort is even, unlabored, Respiratory pattern is regular, symmetrical. Derm: Skin is intact, Skin is pink, warm \\T\\ dry. Musculoskeletal: Circulation, motion, and sensation intact. Range of motion: intact in all extremities. Historical: - Allergies: 15:23 dextromethorphan; hb 15:23 Naproxen; hb - Home Meds: 15:23 None [Active]; hb - PMHx: 15:23 fatty liver; Hypertension; hb - PSHx: 15:23 ; hb - Immunization history:: Adult Immunizations up to date. - Social history:: Smoking status: Patient uses tobacco products, smokes one pack cigarettes per day. - Ebola Screening: : No symptoms or risks identified at this time. Screenin:23 Abuse screen: Denies threats or abuse. Denies injuries from another. Nutritional hb screening: No deficits noted. Tuberculosis screening: No symptoms or risk factors identified. Fall Risk None identified. Assessment: 15:47 General: SEE TRIAGE ASSESSMENT. ph 16:41 Reassessment: Patient appears in no apparent distress at this time. Patient and/or ph family updated on plan of care and expected duration. Pain level reassessed. Patient is alert, oriented x 3, equal unlabored respirations, skin warm/dry/pink. 18:22 Reassessment: Patient appears in no apparent distress at this time. Patient and/or ph family updated on plan of care and expected duration. Pain level reassessed. Patient is alert, oriented x 3, equal unlabored respirations, skin warm/dry/pink. Vital Signs: 15:21 BP 169 / 86; Pulse 88; Resp 18; Temp 98.2(O); Pulse Ox 99% ; lt1 16:40 BP 162 / 91; Pulse 89; Resp 18; Pulse Ox 99% on R/A; ph 18:21 BP 171 / 92; Pulse 87; Resp 18; Temp 98.0; Pulse Ox 99% on R/A; ph ED Course: 15:21 Patient arrived in ED. ph 15:22 Arm band placed on. hb 15:23 Patient has correct armband on for positive identification. Bed in low position. Call light in reach. Side rails up X 1. 15:25 Rogers Matamoros PA is PHCP. jr8 15:25 Eloy Johnson MD is Attending Physician. jr8 15:26 Triage completed. ph 15:27 PHCP role handed off by Rogers Matamoros PA pm1 15:27 Scooter Goodman NP is PHCP. pm1 16:13 XRAY Chest (1 view) In Process Unspecified. EDMS 16:36 Daniela Christina, RN is Primary Nurse. ph 18:22 No provider procedures requiring assistance completed. IV discontinued, intact, ph bleeding controlled, No redness/swelling at site. Pressure dressing applied. Administered Medications: 18:00 Drug: Rocephin 1 grams Route: IV; Rate: calculated rate; Site: left antecubital; ph 18:21 Follow up: Response: No adverse reaction; IV Status: Completed infusion ph Outcome: 18:03 Discharge ordered by MD. pm1 18:23 Discharged to home ambulatory. ph 18:23 Condition: good 18:23 Discharge instructions given to patient, Instructed on discharge instructions, follow up and referral plans. Demonstrated understanding of instructions, follow-up care, medications, Prescriptions given X 1. 18:23 Patient left the ED. ph Addendum: 08/20/2019 07:37 Addendum: Culture Results: Positive urine culture. No further action required. Bacteria i w sensitive to prescribed antibiotic. Signatures: Dispatcher [employer] EDMI Izabela Tate RN RN Rogers Matamoros PA PA jr8 Daniela Christina, QUAN RN Scooter Goodman NP [employer]EEPER [employer]ORER pm1 Mallorie Merritt RN RN hb Tran, [facility]
[2019-08-17 18:28] VITALS: O2SAT 99
[2019-08-17 18:31] VITALS: BP 171/92; TEMP 98
--- NOTE | 2019-08-18 20:49 | EKG ---
Test Date: 2019-08-17 Test Time: 15:49:01 [employer] Receptionist: JOSE RAMONT MEASUREMENT RESULTS: Intervals: Rate: 85 [place]: 168 QRSD: 82 QT: 410 QTc: 487 [place]: P: 72 [place]: 168 QRS: 87 T: 47 INTERPRETIVE STATEMENTS: Normal sinus rhythm Prolonged QT Abnormal ECG No previous ECG available for comparison Electronically Signed On 08-18-19 20:46:48 [employer] by Matthew Cali
== END 2019-08-17 18:23 | disposition home or self-care (01) ==
LOC: ER 15:20
DX: I10 Essential (primary) hypertension (principal); F15.10 Other stimulant abuse, uncomplicated; N39.0 Urinary tract infection, site not specified; F17.210 Nicotine dependence, cigarettes, uncomplicated; K76.0 Fatty (change of) liver, not elsewhere classified; Z33.1 Pregnant state, incidental
CPT/HCPCS: 36415; 71045; 80048; 80076; 80307; 81003; 81015; 81025; 84484; 85025; 87077; 87086; 87088; 87186; 93005; 96365; 99284; J0696

== ENCOUNTER 2019-09-28 16:48 | Emergency (ER) | payer SELFPAY ==
--- OUTSIDE RECORDS SUMMARY | 2019-09-28 17:03 | XMS REPORT ---
:1985 [facility] Address [address] [place] [address] [address] [place] [address] Care Team Providers Name Role Phone Unavailable Unavailable Unavailable Problems This patient has no known problems. Allergies, Adverse Reactions, Alerts This patient has no known allergies or adverse reactions. Medications This patient has no known medications.
[2019-09-28] MEDS ORDERED: CLINDAMYCIN 900MG/D5W 900 MG/50 ML IVPB IV ONE (17:37)
[2019-09-28] MEDS ORDERED: NA CHLORIDE 0.9% 1,000 ML ONE (17:37)
[2019-09-28 17:55] LABS: Absolute Lymphocytes (CBC) 2.4 K/uL (0.7-4.9); Basophils % 0.4 % (0-1.3); Hematocrit 39.3 % (36.0-45.0); Lymphocytes % 24.9 % (15.3-44.8); MPV 8.7 fL (7.6-11.3)
[2019-09-28 18:31] LABS: BUN Blood Urea Nitrogen 15 mg/dL (7-18); Bicarbonate 28 mmol/L (21-32); Glucose Level 89 mg/dL (74-106); HCG, Quantitative 1281 mIU/mL (1-3); Potassium 3.6 mmol/L (3.5-5.1); Sodium Level 139 mmol/L (136-145)
--- NOTE | 2019-09-28 19:21 | ER ---
Nurse's Notes [facility] Name: Joslyn Cadena Age: 33 yrs Sex: Female : 1985 Arrival Date: 09/28/2019 Time: 16:50 Bed 8 Private MD: Diagnosis: Dental caries;Threatened Presentation: 09/28 17:03 Presenting complaint: Patient states: Swelling to left jaw that started yesterday. aj1 Patient also states that she had a positive test here 3 weeks ago, but she has not followed up with a HEALTH CLINICIAN, she is unsure how far along she is, but she has been having vaginal bleeding for the past 3 weeks. Transition of care: patient was not received from another setting of care. Onset of symptoms was September 2019. Risk Assessment: Do you want to hurt yourself or someone else? Patient reports no desire to harm self or others. Initial Sepsis Screen: Does the patient meet any 2 criteria? No. Patient's initial sepsis screen is negative. Does the patient have a suspected source of infection? Yes: Other: possible dental abscess. Care prior to arrival: None. 17:03 Method Of Arrival: Ambulatory aj1 17:09 Acuity: MIKE 2 aj1 Triage Assessment: 17:09 General: Appears in no apparent distress. comfortable, Behavior is calm, cooperative, aj1 appropriate for age. Pain: Complains of pain in left jaw. Neuro: Level of Consciousness is awake, alert, obeys commands. Cardiovascular: Patient's skin is warm and dry. Respiratory: Airway is patent Respiratory effort is even, unlabored, Respiratory pattern is regular, symmetrical. : Reports vaginal bleeding that is bright red. 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 - Coronavirus screen:: The patient has NOT traveled to [place], [place], or [place] in the past 14 days. - Social history:: Smoking status: Patient reports the use of cigarette tobacco products, smokes one-half pack cigarettes per day. - Family history:: not pertinent. - Ebola Screening: : Patient denies travel to an Ebola-affected area in the 21 days before illness onset. Screenin:25 Abuse screen: Denies threats or abuse. Denies injuries from another. Nutritional hb screening: No deficits noted. Tuberculosis screening: No symptoms or risk factors identified. Fall Risk None identified. Assessment: 17:25 General: Appears in no apparent distress. Behavior is calm, cooperative. Pain: Pain hb currently is 8 out of 10 on a pain scale. Neuro: Level of Consciousness is awake, alert, obeys commands, Oriented to person, place, time, situation. Cardiovascular: Capillary refill < 3 seconds Patient's skin is warm and dry. Respiratory: Airway is patent Respiratory effort is even, unlabored, Respiratory pattern is regular, symmetrical. GI: No signs and/or symptoms were reported involving the gastrointestinal system. : Reports vaginal bleeding that is with clots. EENT:. Derm: left sided facial swelling noted. Musculoskeletal: No signs and/or symptoms reported regarding the musculoskeletal system. 18:04 Reassessment: Patient appears in no apparent distress at this time. Patient and/or hb family updated on plan of care and expected duration. Pain level reassessed. Patient is alert, oriented x 3, equal unlabored respirations, skin warm/dry/pink. 18:59 Reassessment: Patient appears in no apparent distress at this time. Patient and/or hb family updated on plan of care and expected duration. Pain level reassessed. Patient is alert, oriented x 3, equal unlabored respirations, skin warm/dry/pink. 19:31 Reassessment: Patient and/or family updated on plan of care and expected duration. Pain ea level reassessed. Patient is alert, oriented x 3, equal unlabored respirations, skin warm/dry/pink. Discharge instruction given to patient, verbalized the understanding of instruction. Pt left ED ambulatory, tolerating well. Vital Signs: 17:09 BP 161 / 106; Pulse 109; Resp 20; Temp 98.7; Pulse Ox 98% on R/A; Weight 82.1 kg (R); aj1 Height 5 ft. 2 in. (157.48 cm) (R); Pain 8/10; 18:04 BP 148 / 81; Pulse 89; Resp 17; Pulse Ox 99% on R/A; hb 19:05 BP 150 / 78; Pulse 82; Resp 18; Temp 98.6; Pulse Ox 99% ; ea 17:09 Body Mass Index 33.10 (82.10 kg, 157.48 cm) aj1 ED Course: 16:50 Patient arrived in ED. mr 17:09 Triage completed. aj1 17:09 Arm band placed on Patient placed in an exam room. aj1 17:12 Sai Bolaños MD is Attending Physician. melchor 17:25 Patient has correct armband on for positive identification. Bed in low position. Call hb light in reach. Side rails up X 1. 17:31 Mallorie Merritt, RN is Primary Nurse. hb 17:40 Inserted saline lock: 20 gauge in right antecubital area, using aseptic technique. hb Blood collected. 18:40 US Transvaginal Ob In Process Unspecified. EDMA 19:01 Urine Culture Sent. kj1 19:20 Vidal Hou DDS is Referral Physician. melchor 19:20 Evan Brown MD is Referral Physician. melchor 19:28 IV discontinued, intact, bleeding controlled, No redness/swelling at site. Pressure ea dressing applied. 19:32 No provider procedures requiring assistance completed. ea Administered Medications: 17:43 Drug: NS 0.9% 1000 ml Route: IV; Rate: 1 bolus; Site: right antecubital; hb 18:59 Follow up: Response: No adverse reaction; IV Status: Completed infusion; IV Intake: hb 1000ml 17:43 Drug: Clindamycin 900 mg Route: IVPB; Infused Over: 30 mins; Site: right antecubital; hb 18:04 Follow up: Response: No adverse reaction; IV Status: Completed infusion; IV Intake: 50mlhb Intake: 18:04 IV: 50ml; Total: 50ml. hb 18:59 IV: 1000ml; Total: 1050ml. hb Outcome: 19:20 Discharge ordered by . melchor 19:32 Discharged to home ambulatory. ea 19:32 Condition: stable 19:32 Discharge instructions given to patient, Instructed on discharge instructions, follow up and referral plans. medication usage, Demonstrated understanding of instructions, follow-up care, medications. 19:33 Patient left the ED. ea Signatures: Dispatcher [employer] EDMA Annie Patterson RN RN aj1 Sai Bolaños MD MD cha Rivera, Mary mr Mallorie Merritt, RN RN Maria Isabel Boggs RN RN cyrus Clayton, Elysia kj1
--- NOTE | 2019-09-28 19:22 | EDPHYS ---
Physician Documentation [facility] Name: Joslyn Cadena Age: 33 yrs Sex: Female : 1985 Arrival Date: 09/28/2019 Time: 16:50 Bed 8 Private MD: LUCA Physician Sai Bolaños HPI: 09/28 17:28 This 33 yrs old Female presents to ER via Ambulatory with complaints of melchor Facial Swelling, Vaginal Bleeding. 17:28 The patient presents with vaginal bleeding that is moderate. Onset: The melchor symptoms/episode began/occurred 3 week(s) ago. 17:29 The patient presents with pain, swelling. The problem is located in the left cheek. melchor Onset: The symptoms/episode began/occurred 3 day(s) ago. Duration: The symptoms are continuous, and are steadily getting worse. Modifying factors: The symptoms are alleviated by nothing, the symptoms are aggravated by air. Modifying factors: The symptoms are alleviated by nothing, the symptoms are aggravated by pressure, food. Severity of symptoms: At their worst the symptoms were moderate, in the emergency department the symptoms are unchanged. 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 - Coronavirus screen:: The patient has NOT traveled to [place], [place], or [place] in the past 14 days. - Social history:: Smoking status: Patient reports the use of cigarette tobacco products, smokes one-half pack cigarettes per day. - Family history:: not pertinent. - Ebola Screening: : Patient denies travel to an Ebola-affected area in the 21 days before illness onset. ROS: 17:30 Constitutional: Negative for fever, chills, and weight loss, Eyes: Negative for injury, melchor pain, redness, and discharge, Neck: Negative for injury, pain, and swelling, Cardiovascular: Negative for chest pain, palpitations, and edema, Respiratory: Negative for shortness of breath, cough, wheezing, and pleuritic chest pain, Abdomen/GI: Negative for abdominal pain, nausea, vomiting, diarrhea, and constipation, Back: Negative for injury and pain, MS/Extremity: Negative for injury and deformity, Skin: Negative for injury, rash, and discoloration, Neuro: Negative for headache, weakness, numbness, tingling, and seizure, Psych: Negative for depression, anxiety, suicide ideation, homicidal ideation, and hallucinations, Allergy/Immunology: Negative for hives, rash, and allergies, Endocrine: Negative for neck swelling, polydipsia, polyuria, polyphagia, and marked weight changes, Hematologic/Lymphatic: Negative for swollen nodes, abnormal bleeding, and unusual bruising. 17:30 ENT: Positive for dental pain. 17:30 : Positive for vaginal bleeding. Exam: 17:30 Constitutional: This is a well developed, well nourished patient who is awake, alert, melchor and in no acute distress. Eyes: Pupils equal round and reactive to light, extra-ocular motions intact. Lids and lashes normal. Conjunctiva and sclera are non-icteric and not injected. Cornea within normal limits. Periorbital areas with no swelling, redness, or edema. Neck: Trachea midline, no thyromegaly or masses palpated, and no cervical lymphadenopathy. Supple, full range of motion without nuchal rigidity, or vertebral point tenderness. No Meningismus. Chest/axilla: Normal chest wall appearance and motion. Nontender with no deformity. No lesions are appreciated. Cardiovascular: Regular rate and rhythm with a normal S1 and S2. No gallops, murmurs, or rubs. Normal PMI, no JVD. No pulse deficits. Respiratory: Lungs have equal breath sounds bilaterally, clear to auscultation and percussion. No rales, rhonchi or wheezes noted. No increased work of breathing, no retractions or nasal flaring. Abdomen/GI: Soft, non-tender, with normal bowel sounds. No distension or tympany. No guarding or rebound. No evidence of tenderness throughout. Back: No spinal tenderness. No costovertebral tenderness. Full range of motion. Skin: Warm, dry with normal turgor. Normal color with no rashes, no lesions, and no evidence of cellulitis. MS/ Extremity: Pulses equal, no cyanosis. Neurovascular intact. Full, normal range of motion. Neuro: Awake and alert, GCS 15, oriented to person, place, time, and situation. Cranial nerves II-XII grossly intact. Motor strength 5/5 in all extremities. Sensory grossly intact. Cerebellar exam normal. Normal gait. Psych: Awake, alert, with orientation to person, place and time. Behavior, mood, and affect are within normal limits. 17:30 Head/face: Noted is swelling, that is mild, of the left cheek. Vital Signs: 17:09 BP 161 / 106; Pulse 109; Resp 20; Temp 98.7; Pulse Ox 98% on R/A; Weight 82.1 kg (R); aj1 Height 5 ft. 2 in. (157.48 cm) (R); Pain 8/10; 18:04 BP 148 / 81; Pulse 89; Resp 17; Pulse Ox 99% on R/A; hb 19:05 BP 150 / 78; Pulse 82; Resp 18; Temp 98.6; Pulse Ox 99% ; ea 17:09 Body Mass Index 33.10 (82.10 kg, 157.48 cm) aj1 MDM: 17:12 Patient medically screened. [facility] 17:32 Data reviewed: vital signs, nurses notes, lab test result(s), radiologic studies, melchor ultrasound. 09/28 17:28 Order name: Quantitative Hcg; Complete Time: 19:19 [facility] 09/28 17:28 Order name: Abo/rh Typing; Complete Time: 19:19 [facility] 09/28 17:28 Order name: Basic Metabolic Panel; Complete Time: 19:19 [facility] 09/28 17:28 Order name: CBC with Diff; Complete Time: 18:13 [facility] 09/28 17:28 Order name: Urine Culture [facility] 09/28 18:08 Order name: Urine Dipstick--Ancillary (enter results) de 09/28 17:28 Order name: Urine Test (obtain specimen); Complete Time: 18:04 [facility] 09/28 17:28 Order name: IV Saline Lock; Complete Time: 17:43 [facility] 09/28 17:28 Order name: Labs collected and sent; Complete Time: 17:43 [facility] 09/28 17:28 Order name: NPO; Complete Time: 17:43 [facility] 09/28 17:40 Order name: US Transvaginal Ob [facility] 09/28 18:08 Order name: Urine --Ancillary (enter results) ms 09/28 17:28 Order name: Urine Dipstick-Ancillary (obtain specimen); Complete Time: 18:04 [facility] Administered Medications: 17:43 Drug: NS 0.9% 1000 ml Route: IV; Rate: 1 bolus; Site: right antecubital; hb 18:59 Follow up: Response: No adverse reaction; IV Status: Completed infusion; IV Intake: hb 1000ml 17:43 Drug: Clindamycin 900 mg Route: IVPB; Infused Over: 30 mins; Site: right antecubital; hb 18:04 Follow up: Response: No adverse reaction; IV Status: Completed infusion; IV Intake: 50mlhb Disposition: 09/28/19 19:20 Discharged to Home. Impression: Dental caries, Threatened . - Condition is Stable. - Discharge Instructions: Dental Pain, Threatened Miscarriage, Vaginal Bleeding During , First Trimester, Vaginal Bleeding During , Second Trimester, First Trimester of , Avrm-vo-Oxha, Dental Pain, Shmg-lu-Xogz, First Trimester of , Threatened Miscarriage, Dmth-dx-Jvel, Pelvic Rest, Vaginal Bleeding During , Second Trimester, Ordk-uc-Abqk. - Prescriptions for Clindamycin HCl 300 mg Oral Capsule - take 1 capsule by ORAL route every 6 hours for 10 days; 29 capsule. Vitamin 27- 0.8 mg Oral Tablet - take 1 tablet by ORAL route once daily; 30 tablet. - Medication Reconciliation Form, Thank You Letter, Antibiotic Education, Prescription Opioid Use form. - Follow up: Private Physician; When: 2 - 3 days; Reason: Recheck today's complaints, Continuance of care, Re-evaluation by your physician. Follow up: Vidal Hou; When: 2 - 3 days; Reason: Recheck today's complaints, Re-evaluation by your physician. Follow up: Evan Brown; When: 2 - 3 days; Reason: Recheck today's complaints, Re-evaluation by your physician. - Problem is new. - Symptoms have improved. Signatures: Dispatcher [employer] Annie Winters RN RN Sai Multani MD MD cha Baxter, Heather, RN RN hb Antunez, Elena, RN RN ea Corrections: (The following items were deleted from the chart) 19:33 19:20 09/28/2019 19:20 Discharged to Home. Impression: Dental caries; Threatened ea . Condition is Stable. Discharge Instructions: Dental Pain, Dental Pain, Suua-ud-Fjcl, Pelvic Rest, Threatened Miscarriage, Vaginal Bleeding During , First Trimester, Vaginal Bleeding During , Second Trimester, First Trimester of , Vhra-ci-Hubo, First Trimester of , Threatened Miscarriage, Sglz-an-Fwti, Vaginal Bleeding During , Second Trimester, Oshm-[id number]-Qbch. Prescriptions for Clindamycin HCl 300 mg Oral Capsule - take 1 capsule by ORAL route every 6 hours for 10 days; 29 capsule, Vitamin 27-0.8 mg Oral Tablet - take 1 tablet by ORAL route once daily; 30 tablet. and Forms are Medication Reconciliation Form, Thank You Letter, Antibiotic Education, Prescription Opioid Use. Follow up: Private Physician; When: 2 - 3 days; Reason: Recheck today's complaints, Continuance of care, Re-evaluation by your physician. Follow up: Vidal Hou; When: 2 - 3 days; Reason: Recheck today's complaints, Re-evaluation by your physician. Follow up: Evan Brown; When: 2 - 3 days; Reason: Recheck today's complaints, Re-evaluation by your physician. Problem is new. Symptoms have improved. melchor
--- NOTE | 2019-09-28 19:30 | RAD REPORT ---
EXAM DESCRIPTION: US - Transvaginal OB - 09/28/2019 6:40 pm CLINICAL HISTORY: ABD CRAMPING, COMPARISON: None FINDINGS: No normal shaped gestational sac identified. There is a small irregular fluid collection i n the fundal portion of the endometrial cavity. No yolk sac or pole seen. Uterus is retroflexed . No myometrial mass. Left ovary could not be visualized due to prominent bowel. No left adnexal mass. No blood or fluid in the cul de sac. Benign right ovarian cyst is present approximately 15 mm in size. No right adnexal m ass. IMPRESSION: No intrauterine gestation identifiable at this time. A small irregular fluid collection is present in the endometrial cavity. No adnexal mass to suspect ectopic .
[2019-09-28 20:06] LABS: Urine Blood 1+ (NEG); Urine Glucose NEGATIVE (NEG); Urine Protein TRACE (NEG); Urine Specific Gravity >1.030 (1.005-1.030); Urine pH 5.5 (5.0-7.0)
== END 2019-09-28 19:33 | disposition home or self-care (01) ==
LOC: ER 16:48
DX: O20.0 Threatened abortion (principal); K02.9 Dental caries, unspecified; O99.330 Smoking (tobacco) complicating pregnancy, unspecified trimester; Z3A.00 Weeks of gestation of pregnancy not specified; F17.210 Nicotine dependence, cigarettes, uncomplicated; Z88.5 Allergy status to narcotic agent
CPT/HCPCS: 36415; 76817; 80048; 81003; 81025; 84702; 85025; 86900; 86901; 87086; 87088; 96361; 96365; 99284; J7030